=== PATIENT | female | born 1995 | race Caucasian/White ===

== ENCOUNTER 2018-04-24 06:01 | Emergency (ER) | payer MEDICAID ==
[~2018-04-24] VITALS: Ht 182.9 cm; Wt 65.8 kg
[2018-04-24] MEDS ORDERED: GENERESS FE CH1 EACH PO (06:15)
[2018-04-24] MEDS ORDERED: Norco 5-325 Ta1 EACH PO (06:46)
[2018-04-24] MEDS ORDERED: Ciloxan5 ML LEFTEYE (06:46)
== END 2018-04-24 07:05 | disposition home or self-care (01) ==
LOC: ER 06:01
DX: H16.8 Other keratitis (principal); Z88.2 Allergy status to sulfonamides; Z79.899 Other long term (current) drug therapy
CPT/HCPCS: 99283